=== PATIENT | male | born 1965 | race Native Hawaiian/Other Pacific Islander ===

== ENCOUNTER 2019-07-19 02:02 | Outpatient (CLI) | payer OTHER | END 2019-07-19 02:18 | disposition short-term general hospital (02) | LOC: AMB 02:02 | DX: R51 Headache (principal); S01.312A Laceration without foreign body of left ear, initial encounter; R07.89 Other chest pain; S80.212A Abrasion, left knee, initial encounter; S80.211A Abrasion, right knee, initial encounter; S20.419A Abrasion of unspecified back wall of thorax, initial encounter; M25.561 Pain in right knee; M25.532 Pain in left wrist; M25.531 Pain in right wrist; V89.2XXA Person injured in unspecified motor-vehicle accident, traffic, initial encounter | CPT/HCPCS: A0425; A0427 ==

== ENCOUNTER 2019-07-19 02:18 | Emergency (ER) | payer OTHER ==
[~2019-07-19] VITALS: Ht 154.9 cm; Wt 88.9 kg
[2019-07-19 03:13] LABS: POTASSIUM 3.7 mmol/L (3.6-5.2); SODIUM 141 mmol/L (136-145)
[2019-07-19 03:16] LABS: PLATELET COUNT 356 K/uL (142-355)
[2019-07-19 03:27] LABS: PARTIAL THROMBOPLASTIN TIME 21.9 SECONDS (24.5-33.6)
[2019-07-19 09:40] VITALS: BP 135/75; TEMP 98
== END 2019-07-19 09:44 | disposition short-term general hospital (02) ==
LOC: ED 02:23
PROVIDERS: Hospitalist
PROC: 0T9B70Z Drainage of Bladder with Drainage Device, Via Natural or Artificial Opening (ICD-10-PCS; principal; 2019-07-19)
DX: S09.90XA Unspecified injury of head, initial encounter (principal); S06.0X0A Concussion without loss of consciousness, initial encounter; S01.312A Laceration without foreign body of left ear, initial encounter; S22.42XA Multiple fractures of ribs, left side, initial encounter for closed fracture; V59.3XXA Occupant (driver) (passenger) of pick-up truck or van injured in unspecified nontraffic accident, initial encounter
CPT/HCPCS: 80053; 80307; 80320; 81000; 82550; 84484; 85027; 85610; 85730; 90471; 90715; 96360; 96365; 96375; 96376; 99285; J0690; J2270; J2405; Q9963

== ENCOUNTER 2019-07-19 09:47 | Outpatient (CLI) | payer OTHER | END 2019-07-19 11:11 | disposition short-term general hospital (02) | LOC: AMB 09:47 | DX: S09.90XA Unspecified injury of head, initial encounter (principal); S01.312A Laceration without foreign body of left ear, initial encounter; S22.42XA Multiple fractures of ribs, left side, initial encounter for closed fracture; R07.81 Pleurodynia; V59.3XXA Occupant (driver) (passenger) of pick-up truck or van injured in unspecified nontraffic accident, initial encounter; Y92.89 Other specified places as the place of occurrence of the external cause | CPT/HCPCS: A0425; A0427 ==

== ENCOUNTER 2020-04-01 17:52 | Observation (INO) | payer OTHER ==
[~2020-04-01] VITALS: Ht 180.3 cm; Wt 82.6 kg
[2020-04-01 18:00] VITALS: BP 140/82; TEMP 98.9
[2020-04-01 18:45] VITALS: BP 112/75
[2020-04-01 18:55] LABS: PLATELET COUNT 322 K/uL (142-355)
[2020-04-01 18:57] LABS: POTASSIUM 3.7 mmol/L (3.6-5.2)
[2020-04-01 19:15] VITALS: BP 109/68
[2020-04-01 19:45] VITALS: BP 132/78
[2020-04-01 20:39] VITALS: BP 132/91
[2020-04-01 22:39] VITALS: BP 153/90; TEMP 99.1; Ht 180.3 cm; Wt 82.6 kg
[2020-04-02] VITALS (7 sets, daily range): BP systolic 114–153; BP diastolic 70–90; TEMP 97.4–99.1
[2020-04-02 09:02] LABS: POTASSIUM 3.8 mmol/L (3.6-5.2)
[2020-04-02 09:06] LABS: PLATELET COUNT 327 K/uL (142-355)
[2020-04-03 03:32] VITALS: BP 123/74; TEMP 97.9
[2020-04-03 05:03] LABS: PLATELET COUNT 351 K/uL (142-355)
[2020-04-03 05:27] LABS: POTASSIUM 3.9 mmol/L (3.6-5.2)
[2020-04-03 08:00] VITALS: BP 168/97; TEMP 97.6
[2020-04-03 12:00] VITALS: BP 140/96; TEMP 97.9
[2020-04-03] MEDS ORDERED: AZIT250T3 PO (15:27)
[2020-04-03] MEDS ORDERED: MEDROL DOSEPAK4 MG PO (15:29)
[2020-04-03] MEDS ORDERED: ALBU0.042 INH (15:31)
[2020-04-03] MEDS ORDERED: BUDE1AER5 INH (15:32)
== END 2020-04-03 16:00 | disposition home or self-care (01) ==
LOC: ED 17:52 → MED/SURG 20:50
PROVIDERS: Hospitalist; ADMIT Internal Medicine Endocrinology, Diabetes & Metabolism
DX: J44.1 Chronic obstructive pulmonary disease with (acute) exacerbation (principal); Z72.0 Tobacco use; J96.01 Acute respiratory failure with hypoxia; E87.1 Hypo-osmolality and hyponatremia; R73.9 Hyperglycemia, unspecified
CPT/HCPCS: 36415; 36600; 80048; 80053; 81000; 82805; 83036; 85027; 87040; 87070; 87205; 87502; 87635; 87651; 94640; 94664; 94760; 96361; 96365; 96372; 96375; 99220; 99284; G0378; J0696; J1100; J1650; J1956; J2930; U0003

== ENCOUNTER 2020-09-03 09:18 | Emergency (ER) | payer OTHER ==
[~2020-09-03] VITALS: Ht 180.3 cm; Wt 78.5 kg
[~2020-09-03 09:18] MED LIST: ALBU0.042 INH; AZIT250T3 PO; BUDE1AER5 INH; MEDROL DOSEPAK4 MG PO
[2020-09-03 10:13] LABS: PLATELET COUNT 338 K/uL (142-355)
[2020-09-03 10:25] LABS: POTASSIUM 3.6 mmol/L (3.6-5.2); SODIUM 141 mmol/L (136-145)
[2020-09-03 10:35] LABS: PARTIAL THROMBOPLASTIN TIME 23.2 SECONDS (24.5-33.6)
[2020-09-03 12:08] VITALS: BP 182/103; TEMP 97.9
== END 2020-09-03 12:08 | disposition home or self-care (01) ==
LOC: ED 09:18
PROVIDERS: Hospitalist
DX: J32.8 Other chronic sinusitis (principal); R42 Dizziness and giddiness; J44.9 Chronic obstructive pulmonary disease, unspecified; E86.0 Dehydration; Z03.818 Encounter for observation for suspected exposure to other biological agents ruled out; F17.210 Nicotine dependence, cigarettes, uncomplicated
CPT/HCPCS: 80053; 80320; 81000; 82550; 83880; 84484; 85027; 85610; 85730; 87635; 93005; 96365; 96375; 99284; J0696; J2930; U0003

== ENCOUNTER 2020-09-03 13:29 | Observation (INO) | payer OTHER ==
[~2020-09-03] VITALS: Ht 180.3 cm; Wt 87.5 kg
[2020-09-03 13:46] VITALS: BP 168/100; TEMP 98.4
[2020-09-03 15:22] VITALS: BP 192/112; TEMP 97.6
--- NOTE | 2020-09-03 15:47 | NUR ---
09/03/20 1505 PT TO ROOM [address] BOND. PT ORIENTED TO ROOM, CALL LIGHT WITHIN REACH,
[2020-09-03 16:00] VITALS: BP 192/112; TEMP 97.6
--- NOTE | 2020-09-03 18:35 | NUR ---
1505 PT ADMITTED TO ROOM 1111 VIA WC HYPERTENSIVE AT 181/101 PER VS MACHINE AND 192/112 MANUAL. NOTIFIED NEW ORDER GIVEN FOR LABETOLOL 10MG IVSP. ORDERS CARRIED OUT. BP RECHECKED AND WAS 172/106. SIGNIFICANT OTHER HELPED PT SHOWER. PT TELE PUT BACK ON AND IS NOW RUNNING 77NSR. WITH NO COMPLAINTS
[2020-09-03 20:00] VITALS: BP 125/85; TEMP 98.2
[2020-09-03 22:30] LABS: PLATELET COUNT 293 K/uL (142-355)
[2020-09-03 22:46] LABS: POTASSIUM 2.9 mmol/L (3.6-5.2); SODIUM 141 mmol/L (136-145)
[2020-09-03 22:55] LABS: PARTIAL THROMBOPLASTIN TIME 20.1 SECONDS (24.5-33.6)
--- NOTE | 2020-09-04 04:55 | NUR ---
PATIENT WAS ASSESED AT 1900 UPON THE BEGINNG OF THE SHIFT. THE PATIENT WAS IN HIS BED ON HIS SIDE SLEEPING IN HIS BED. NO NOTED BREATHING DISTRESS OF OBVIOUS DISTRESS NOTED. I ASSED THE PATIENT AND HE WAS CLEAN AND DRY. HIS HEART RATE WAS WNL AND THE PATIENT DENIED ANY PAIN OR DISCOMFORT. ALL EXTREMITIES HAD REGULAR PULSES AND NO ADVENTAGEOUS HEART OR LUNG SOUNDS WERE NOTED WITH THE EXCEPTION OF SOME DIMISHMENT AT THE LUNG BASES, WHICH WAS ALSO NOTED BY DAY SHIFT. THE PATIENT DENIED ANY TROUBLE BREATHING. ALL HIS VITALS WERE STABLE AND FOLLOWS: TEMP 98.6, HR 69, RESP 19, BP 125/85, O2 95 I TOLD HIM I WOULD BE BACK WITH HIS MEDICINE.
--- NOTE | 2020-09-04 05:23 | NUR ---
AT 2019 I ASSED THE PATIENTS MAR AND VITALS. THE PREVIOUS SHIFT HAD GIVEN HIM LABETALOL AND XANAX BEFORE OUR SHIFT THAT HAD MANAGED HIS BLOOD PRESSURE. HIS BP WAS 125/85. I HELD HIS SCHEDULED LABETALOL AND GAVE HIS SCHEDULED METOPROLOL AND MELATONIN. AT 2044 I ARRIVED IN THE PATINETS ROOM AND WOKE HIM AND GAVE HIM HIS MEDICATIONS. NO DISTRESS NOTED AND PATIENT DENIED ANY PAIN. LEFT THE ROOM TO CHART
--- NOTE | 2020-09-04 05:31 | NUR ---
AT 2129 I WAS COMPAIRING HIS CURRENT TELEMTRY PRINT OUTS WITH HIS EKG FROM [facility]. THERE WAS NO MAJOR CHANGE. AND HIS CHEST X RAY SHOWED POSSIABLE PNEUMONIA. AT 2214 THE PATIENT 2ND CARDIACS COME THROUGH FROM LAB AND HIS TROPONIN WAS 0.04 AND HIS OTHER CARDIACS WERE NOT SIGNIFICANTLY OUT OF RANGE.
--- NOTE | 2020-09-04 05:38 | NUR ---
AT 2203 I WAS WALKING OUT OF A PATIENTS ROOM AND OUR TELE-OIL INSPECTOR REPORTED TO ME THAT I SHOULD CHECK ON MY PATIENT IN 1111, THAT HIS HEART RATE WAS VERY ELIVATED. I SPED TO HIS ROOM AND WENT TO THE PATIENTS BEDSIDE. THE PATIENT WAS DRENCHED IN SWEAT AND HIS BODY WAS RIGID WITH HIS FACE SCREWED UP IN A GRIMACE. I QUICKLY ATTEMPTED TO AROUSE THE PATIENT. I SAT IM HUT AND FELT FOR A PULSE AND RESPIRATIONS. THE PATIENTS HEART WAS VERY TACHYCARDIC AND FAINT AND HIS RESPIRATIONS LABORED. I SPED TO THE DOOR AND CALLED FOR HELP. I CONTINUED TO TRY TO ROUSE MY PATIENT MY CHARGE NURSE AND PCT CAME IN, THE DELG[facility]O CLEARK CALLED OVERHEAD FOR RESPIRTORY AND ER DOCTOR. . THE PATIENTS PULSE BECAME THREADY AND THE TELE BOX SHOWED V-TAC. I FELT NO PULSE OR BREATHING. I PULLED THE CODE BLUE BAR AND COMPRESSIONS WERE STARTED AT 2109. ANOTHER NURSE LOU WILLIAM WAS IN THE ROOM WELL AND BEGAN TAKING NOTES. DOCTOR AND RESPIRATORY PRESENT WITHIN MINUTES.
--- NOTE | 2020-09-04 06:02 | NUR ---
2212: 1MG OF EPI GIVEN, COMPRESSIONS RESUMED, RESPIRATORY AT BEDSIDE BAGGING. 2215: ANALYZING RHYTHM, SHOCK ADVISED 2218: SHOCKED DELIVERED AND COMPRESSIONS RESUMED. 300 AMIODERONE GIVEN AND 1ST NS BOLIS STARTED. 2220: ANALYSING RHYTHM, SHOCK ADVISED. SHOCK GIVEN 2221: JASON COMPRESSIONS STARTED. BP 57/12, BLOOD SUGER 216, 02 95%, 2226: ANALYZED AND PULSE FOUND, 18G STARTED IN RT AC, LABS DRAWN. BP 93/56, 2ND NS BOLIS 2228: 2.5 VERSAD GIVEN, 100MG OF SUCCS. 2230: PATIENT INTUBATED, GLIDESCOPE USED. # 7 ET TUBE. PATIENT SECURED VERSAD DRIP STARTED (100MCG IN 100MLS) AT 5MCG/HR. VITALS: 95% 02 SAT, HR 80, BP 131/95. RESPIRTORY BAGGING. 2240: DOCTOR AGAIN ON PHONE WITH JINNY. PATIENT FOUGHT SEDATION AND ANOTHER 100MG OF SUCCS WAS GIVEN WITH 5MCG MORE OF VERSAD. LABS BACK. DR ORDERED 10MEQ OF K+. 2250: VITALS: O2 99%, HR 71, TEMP 97.0, BP 149/92., PATIENT ORDERED 5MCG MORE OF VERSAD IVP AND 50 OF SUCCS. 2257: 18F JOHNSON INSERTED. 2300: BP 129/92, 100% O2, HR 88, RESPIRATORY LET NURSE BAG WHILE SHE OBTAINED ABG 2302: ABG BACK, 2 AMPS OF SODIUM BICARB ORDERED AND GIVEN. 2315: O2 100%, HR 75, BP 131/90, TEMP 96.8. 2320: AIR EVAC 10MINS OUT, RESPIRTORY DECIEDED TO KEEP BAGGING. 2330: AIR EVAC TAKES OVER CARE. 0005: AIR EVAC LEAVES HOSPITAL PATIENT EMERGENCY CONTACT NOTIFIED BY CHARGE NURSE. BELONGINGS BAGGED AND NAME OF PATIENT APPLIED 2250: 20G IN RT HAND, VERSAD DRIP MOVED TO THAT ACCESS. DOCTOR ORDERED ANOTHER 2235: PATIENT FIGHTING SEDATION, DR ORDERED 50MG MORE OF SUCCS,
== END 2020-09-04 00:07 | disposition short-term general hospital (02) ==
LOC: ED 13:29 → MED/SURG 14:00
PROVIDERS: ADMIT Internal Medicine Endocrinology, Diabetes & Metabolism; ATTEND Internal Medicine Endocrinology, Diabetes & Metabolism
PROC: 5A1935Z Respiratory Ventilation, Less than 24 Consecutive Hours (ICD-10-PCS; principal; 2020-09-03)
PROC: 0BH17EZ Insertion of Endotracheal Airway into Trachea, Via Natural or Artificial Opening (ICD-10-PCS; 2020-09-03)
PROC: 5A12012 Performance of Cardiac Output, Single, Manual (ICD-10-PCS; 2020-09-03)
DX: J44.1 Chronic obstructive pulmonary disease with (acute) exacerbation (principal); I47.2 Ventricular tachycardia; I46.9 Cardiac arrest, cause unspecified; R06.02 Shortness of breath; Z72.0 Tobacco use; R53.1 Weakness; R42 Dizziness and giddiness; I10 Essential (primary) hypertension
CPT/HCPCS: 31500; 36415; 36600; 80053; 80307; 82550; 82805; 84484; 85027; 85610; 85730; 92950; 93005; 96372; 96374; 96375; 99220; 99283; G0378; J0171; J0282; J0330; J1650; J2250; J2930; J3490

== ENCOUNTER 2020-10-15 17:48 | Inpatient (IN) | payer OTHER ==
[~2020-10-15] VITALS: Ht 180.3 cm; Wt 84.4 kg
[2020-10-15 18:03] VITALS: BP 145/112; TEMP 98.6
[2020-10-15 18:28] LABS: PLATELET COUNT 286 K/uL (142-355)
[2020-10-15 18:36] LABS: POTASSIUM 3.3 mmol/L (3.6-5.2); SODIUM 142 mmol/L (136-145)
[2020-10-15 18:59] VITALS: BP 173/100
[2020-10-15 19:10] VITALS: BP 167/110
[2020-10-15 19:29] LABS: PARTIAL THROMBOPLASTIN TIME 22.7 SECONDS (24.5-33.6)
[2020-10-15 19:41] VITALS: BP 167/90
[2020-10-15 20:00] VITALS: BP 168/102
[2020-10-15 21:37] VITALS: BP 158/101; TEMP 98.3; Ht 180.3 cm; Wt 84.4 kg
[2020-10-16 04:00] VITALS: BP 160/95; TEMP 97.8
[2020-10-16 08:00] VITALS: BP 135/92; TEMP 97.7
[2020-10-16 10:31] LABS: PLATELET COUNT 311 K/uL (142-355)
[2020-10-16 12:00] VITALS: BP 143/84; TEMP 98.1
[2020-10-16] MEDS ORDERED: OXYC5TAB53 PO (14:14)
[2020-10-16] MEDS ORDERED: METO-837 PO (14:15)
[2020-10-16] MEDS ORDERED: LIPITOR20 MG PO (14:16)
[2020-10-16] MEDS ORDERED: PANTOPRAZOLE 40MG TA PO (14:18)
[2020-10-16] MEDS ORDERED: ASPIR-LOW81 MG PO (14:18)
[2020-10-16 16:00] VITALS: BP 125/87; TEMP 98.1
== END 2020-10-16 18:20 | disposition left against medical advice (07) | DRG 189 ==
LOC: ED 17:48 → MED/SURG 19:45
PROVIDERS: ADMIT Hospitalist; ATTEND Internal Medicine Endocrinology, Diabetes & Metabolism
DX: J96.01 Acute respiratory failure with hypoxia (principal); J44.1 Chronic obstructive pulmonary disease with (acute) exacerbation; E87.6 Hypokalemia; Z72.0 Tobacco use; I10 Essential (primary) hypertension; K21.9 Gastro-esophageal reflux disease without esophagitis; F41.8 Other specified anxiety disorders
CPT/HCPCS: 36415; 36600; 80053; 80307; 80320; 82550; 82805; 83874; 83880; 84484; 85027; 85610; 85730; 87635; 87651; 93005; 94664; 94760; 96372; 96374; 96375; 99284; J0360; J0456; J0696; J1650; J2060; J2930; U0003

== ENCOUNTER 2021-05-31 05:19 | Emergency (ER) | payer OTHER ==
[~2021-05-31] VITALS: Ht 180.3 cm; Wt 86.2 kg
[~2021-05-31 05:19] MED LIST changes: +ASPIR-LOW81 MG PO; +LIPITOR20 MG PO; +METO-837 PO; +OXYC5TAB53 PO; +PANTOPRAZOLE 40MG TA PO
[2021-05-31 05:25] VITALS: TEMP 98
[2021-05-31 05:57] LABS: PLATELET COUNT 254 K/uL (142-355)
[2021-05-31 06:17] LABS: PARTIAL THROMBOPLASTIN TIME 22.2 SECONDS (24.5-33.6); POTASSIUM 2.3 mmol/L (3.6-5.2)
[2021-05-31 07:49] VITALS: BP 160/103
== END 2021-05-31 07:50 | disposition short-term general hospital (02) ==
LOC: ED 05:19
PROVIDERS: Hospitalist
DX: I21.4 Non-ST elevation (NSTEMI) myocardial infarction (principal); T82.897A Other specified complication of cardiac prosthetic devices, implants and grafts, initial encounter; Z11.52 Encounter for screening for COVID-19; F17.210 Nicotine dependence, cigarettes, uncomplicated; Y83.8 Other surgical procedures as the cause of abnormal reaction of the patient, or of later complication, without mention of misadventure at the time of the procedure; Y92.89 Other specified places as the place of occurrence of the external cause
CPT/HCPCS: 80053; 82550; 83880; 84484; 85027; 85610; 85730; 87635; 93005; 96375; 99284; J0360; J2405; U0003

== ENCOUNTER 2021-12-05 23:34 | Observation (INO) | payer OTHER ==
[~2021-12-05] VITALS: Ht 180.3 cm; Wt 84.6 kg
[2021-12-05 23:55] VITALS: BP 171/99; TEMP 98.9
[2021-12-06] VITALS (8 sets, daily range): BP systolic 157–171; BP diastolic 88–103; TEMP 98.1; Ht 180.3 cm; Wt 84.6 kg
[2021-12-06 00:52] LABS: PLATELET COUNT 208 K/uL (142-355)
[2021-12-06 00:57] LABS: POTASSIUM 2.5 mmol/L (3.6-5.2)
[2021-12-06 04:21] LABS: POTASSIUM 3.3 mmol/L (3.6-5.2)
[2021-12-06 06:39] LABS: PLATELET COUNT 227 K/uL (142-355)
[2021-12-06 08:05] LABS: POTASSIUM 3.7 mmol/L (3.6-5.2)
== END 2021-12-06 13:38 | disposition home or self-care (01) ==
LOC: ED 23:34 → MED/SURG 12-06 01:29
PROVIDERS: ADMIT Emergency Medicine; ATTEND Internal Medicine
DX: R42 Dizziness and giddiness (principal); E87.6 Hypokalemia; E78.49 Other hyperlipidemia; I10 Essential (primary) hypertension; K21.9 Gastro-esophageal reflux disease without esophagitis; F19.10 Other psychoactive substance abuse, uncomplicated; I25.10 Atherosclerotic heart disease of native coronary artery without angina pectoris
CPT/HCPCS: 36415; 80053; 80307; 80320; 81000; 83735; 84484; 85027; 85610; 87635; 93005; 96360; 96361; 96365; 96367; 96372; 99220; 99284; G0378; J2405; J3475; U0003

== ENCOUNTER 2022-05-14 06:06 | Emergency (ER) | payer OTHER ==
[~2022-05-14] VITALS: Ht 180.3 cm; Wt 84.4 kg
[2022-05-14 06:10] VITALS: TEMP 99.4
[2022-05-14 07:12] LABS: PLATELET COUNT 209 K/uL (142-355)
[2022-05-14 07:22] LABS: POTASSIUM 4.2 mmol/L (3.6-5.2)
[2022-05-14 08:24] VITALS: BP 149/91
== END 2022-05-14 08:24 | disposition home or self-care (01) ==
LOC: ED 06:06
PROVIDERS: Emergency Medicine Emergency Medical Services
DX: J10.1 Influenza due to other identified influenza virus with other respiratory manifestations (principal); J20.9 Acute bronchitis, unspecified; F17.210 Nicotine dependence, cigarettes, uncomplicated; Z20.822 Contact with and (suspected) exposure to COVID-19
CPT/HCPCS: 36415; 80048; 84484; 85027; 87502; 87635; 87651; 93005; 96360; 96374; 99284; J1885; U0003

== ENCOUNTER 2022-05-26 17:01 | Emergency (ER) | payer OTHER ==
[~2022-05-26] VITALS: Ht 180.3 cm; Wt 87.1 kg
[2022-05-26 17:07] VITALS: TEMP 98.1
[2022-05-26 17:44] LABS: PLATELET COUNT 335 K/uL (142-355)
[2022-05-26 17:50] LABS: POTASSIUM 3.1 mmol/L (3.6-5.2)
[2022-05-26 18:12] LABS: PARTIAL THROMBOPLASTIN TIME 24.5 SECONDS (24.5-33.6)
[2022-05-26 18:33] VITALS: BP 149/108
== END 2022-05-26 18:33 | disposition short-term general hospital (02) ==
LOC: ED 17:01
PROVIDERS: Family Medicine
DX: G40.89 Other seizures (principal)
CPT/HCPCS: 36415; 36600; 80053; 80307; 82550; 82805; 83880; 84484; 85027; 85379; 85610; 85730; 93005; 96365; 96375; 99285; J0282; J2270; J2405

== ENCOUNTER 2022-06-23 16:11 | Emergency (ER) | payer OTHER ==
[~2022-06-23] VITALS: Ht 180.3 cm; Wt 79.4 kg
[2022-06-23 16:15] VITALS: TEMP 100
[2022-06-23] MEDS ORDERED: AMIODARONE HYD200 MG PO (16:24)
[2022-06-23 16:57] LABS: PLATELET COUNT 306 K/uL (142-355)
[2022-06-23 17:02] LABS: POTASSIUM 4.3 mmol/L (3.6-5.2)
[2022-06-23 17:14] LABS: PARTIAL THROMBOPLASTIN TIME 25.4 SECONDS (24.5-33.6)
[2022-06-23 17:45] VITALS: BP 138/80
== END 2022-06-23 18:26 | disposition home or self-care (01) ==
LOC: ED 16:11
PROVIDERS: Emergency Medicine
DX: R42 Dizziness and giddiness (principal)
CPT/HCPCS: 36415; 80053; 80307; 81002; 83880; 84443; 84484; 85027; 85379; 85610; 85730; 93005; 99283

== ENCOUNTER 2022-09-09 22:41 | Emergency (ER) | payer OTHER ==
[~2022-09-09] VITALS: Ht 180.3 cm; Wt 81.6 kg
[~2022-09-09 22:41] MED LIST changes: +AMIODARONE HYD200 MG PO
[2022-09-10 00:26] VITALS: BP 113/65; TEMP 98.1
== END 2022-09-10 00:26 | disposition home or self-care (01) ==
LOC: ED 22:41
PROC: 0HQGXZZ Repair Left Hand Skin, External Approach (ICD-10-PCS; principal; 2022-09-09)
PROC: 2W3DX1Z Immobilization of Left Lower Arm using Splint (ICD-10-PCS; 2022-09-09)
DX: S61.412A Laceration without foreign body of left hand, initial encounter (principal); F10.129 Alcohol abuse with intoxication, unspecified; W26.0XXA Contact with knife, initial encounter; Y92.89 Other specified places as the place of occurrence of the external cause
CPT/HCPCS: 36415; 80320; 99283

== ENCOUNTER 2022-09-25 16:26 | Emergency (ER) | payer OTHER ==
[~2022-09-25] VITALS: Ht 180.3 cm; Wt 72.6 kg
[2022-09-25 16:41] VITALS: BP 128/66; TEMP 98.5
== END 2022-09-25 17:45 | disposition home or self-care (01) ==
LOC: ED 16:26
DX: Z48.02 Encounter for removal of sutures (principal)
CPT/HCPCS: 99282

== ENCOUNTER 2023-01-13 19:28 | Emergency (ER) | payer OTHER ==
[~2023-01-13] VITALS: Ht 180.3 cm; Wt 83.9 kg
[2023-01-13 19:30] VITALS: BP 137/92; TEMP 98.4
[2023-01-13 20:12] LABS: PLATELET COUNT 351 K/uL (142-355)
[2023-01-13] MEDS ORDERED: COZAAR100 MG PO (20:23)
[2023-01-13] MEDS ORDERED: METOPROLOL25 M1 PO (20:24)
== END 2023-01-13 19:59 | disposition left against medical advice (07) ==
LOC: ED 19:28
PROVIDERS: Family Medicine
DX: I20.0 Unstable angina (principal); I10 Essential (primary) hypertension; F10.10 Alcohol abuse, uncomplicated; F10.129 Alcohol abuse with intoxication, unspecified; F12.10 Cannabis abuse, uncomplicated; F17.210 Nicotine dependence, cigarettes, uncomplicated
CPT/HCPCS: 36415; 80053; 82550; 84484; 85027; 85610; 85730; 93005; 99283

== ENCOUNTER 2023-03-16 18:43 | Emergency (ER) | payer OTHER ==
[~2023-03-16] VITALS: Ht 180.3 cm; Wt 81.6 kg
[~2023-03-16 18:43] MED LIST changes: +COZAAR100 MG PO; +METOPROLOL25 M1 PO
[2023-03-16 18:46] VITALS: TEMP 97.6
[2023-03-16 19:08] LABS: PLATELET COUNT 360 K/uL (142-355)
[2023-03-16 19:10] LABS: POTASSIUM 2.9 mmol/L (3.6-5.2)
[2023-03-16 21:30] VITALS: BP 153/89
== END 2023-03-16 21:56 | disposition home or self-care (01) ==
LOC: ED 18:43
PROVIDERS: Family Medicine
DX: I49.3 Ventricular premature depolarization (principal); E87.6 Hypokalemia; I25.10 Atherosclerotic heart disease of native coronary artery without angina pectoris; Z95.0 Presence of cardiac pacemaker; I10 Essential (primary) hypertension; I25.2 Old myocardial infarction; F17.210 Nicotine dependence, cigarettes, uncomplicated
CPT/HCPCS: 36415; 80053; 84484; 85027; 93005; 96361; 96374; 96375; 99284; J2270; J2405